=== PATIENT | male | born 1955 | race Two or more races ===

== ENCOUNTER 2024-12-09 09:43 | Outpatient (RCR) | payer MEDICARE, MEDICAID, SELFPAY ==
--- NOTE | 2024-12-09 10:00 | XR_ITS ---
Examination: MITCH, hepatobiliary radioisotope scan Gallbladder ejection fraction study. Date and time of exam: December 09, 2024 0951 hours INDICATIONS: Intermittent right-sided abdominal pain beginning 8 months ago, diagnosis hypertension atrial fibrillation obesity, left lobe liver lesion on ultrasound of the liver June 22, 2024 Technique: 6.2 mCi of 99M Hepatolite administered. Serial imaging then obtained from immediate through 60 minutes. 2.2 mcg selective catheter Kinevac administered for gallbladder ejection fraction study. Findings: Radioisotope activity within the liver is reasonably homogenous. Gallbladder, common bile duct small bowel activity noted Impression: Gallbladder activity Abnormal gallbladder ejection fraction, 60%, normal greater than 35%
== END 2024-12-14 23:59 | disposition home or self-care (01) ==
LOC: SNUC 09:43
PROVIDERS: PCP Nurse Practitioner Family; Referring Provider Internal Medicine Rheumatology; Visit Provider Internal Medicine Rheumatology
DX: R94.8 Abnormal results of function studies of other organs and systems (principal)
CPT/HCPCS: 78227; A9537; J2805

== ENCOUNTER → 2025-01-22 | Outpatient (CLI) | payer MEDICARE, MEDICAID, SELFPAY ==
--- NOTE | 2025-01-22 13:00 | XR_ITS ---
Examination: Abdomen sonogram, Limited Date and time of exam: January 14, 2025 1305 hrs. Indications: Abdomen sonogram June 22, 2024 left lobe liver lesion 2.9 x 2.3 x 2.2 cm which may represent focal fatty sparing Technique: Real-time [place] scale transabdominal sonographic images of the upper abdomen obtained. Findings: Normal gallbladder Normal common bile duct 0.2 cm Pancreas obscured by bowel gas Liver 13.7 cm fatty infiltration lobular contour no liver lesion confirmed Normal hepatopedal portal venous flow Patent IVC Impression: No liver lesion confirmed
== END | disposition home or self-care (01) ==
PROVIDERS: PCP Physician Assistant; Referring Provider Nurse Practitioner Family; Visit Provider Nurse Practitioner Family
DX: R16.0 Hepatomegaly, not elsewhere classified (principal)
CPT/HCPCS: 76705